=== PATIENT | female | born 1950 | race Caucasian/White ===

== ENCOUNTER 2021-06-16 13:04 | Inpatient (IN) | payer OTHER ==
[~2021-06-16] VITALS: Ht 167.6 cm; Wt 92.5 kg
[2021-06-16 13:04] VITALS: BP 162/79
[~2021-06-16 13:04] MED LIST: ACYCLOVIR 800800 MG PO; ATORVASTATIN CA40 MG PO; GEMFIBROZIL 60600 MG PO; NEURONTIN300 MG PO; PROTONIX40 M1 PO
[2021-06-16 13:26] LABS: BE(vivo) 5.2 mmol/L (-2 to +3); HCO3 28.6 mmol/L (22.0-26.0); PCO2 37.8 mmHg (35.0-45.0); PO2 74.6 mmHg (80.0-100.0); pH 7.496 (7.360-7.450)
[2021-06-16 13:32] LABS: ABSOLUTE NEUTROPHILS 7.5 thou/uL (1.4-8.2); BASOPHILS 0.3 % (0.0-2.0); HEMATOCRIT 39.1 % (37.0-47.0); HEMOGLOBIN 13.1 gm/dL (12.0-15.0); LYMPHOCYTES 6.5 % (24.0-44.0); MCH 27.3 pg (26.0-34.0); MCHC 33.4 g/dL (28.0-37.0); MCV 81.6 fL (80.0-100.0); MONOCYTES 6.6 % (1.0-8.0); PLATELET COUNT 339 thou/uL (150-400); POLYS 86.6 % (36.0-66.0); RBC 4.79 mil/uL (4.20-5.00); RDW 14.1 % (10.5-14.5); WBC 8.7 thou/uL (4.0-11.0)
[2021-06-16 13:45] LABS: CALCIUM 9.2 mg/dL (8.5-10.1); CREATININE 0.7 mg/dL (0.6-1.0); POTASSIUM 3.9 mmol/L (3.5-5.1)
[2021-06-16 14:22] LABS: URINE BILIRUBIN NEGATIVE (Negative); URINE BLOOD NEGATIVE (Negative); URINE CLARITY CLEAR; URINE COLOR YELLOW; URINE GLUCOSE-RANDOM* NEGATIVE (Negative); URINE KETONES TRACE (Negative); URINE LEUKOCYTES-REFLEX TRACE (Negative); URINE NITRITE-REFLEX NEGATIVE (Negative); URINE PROTEIN (DIPSTICK) 1+ (Negative); URINE SPECIFIC GRAVITY 1.025 (1.005-1.035); URINE UROBILINOGEN 0.2 E.U./dl (0.2-1.0)
[2021-06-16 15:13] LABS: MUCUS 4-6 Moderate strn/LPF (None Seen); SQUAMOUS 4-10 Moderate /LPF (0-3); URINE RBC 1-2 Rare /HPF (NONE SEEN); URINE WBC-REFLEX 0-5 Rare /HPF (0-5)
[2021-06-16 17:27] VITALS: BP 147/97
[2021-06-16 17:33] VITALS: BP 134/58
[2021-06-16 18:10] VITALS: BP 145/63
[2021-06-17 00:12] VITALS: BP 149/69
[2021-06-17 03:42] VITALS: BP 143/78
--- NOTE | 2021-06-17 05:47 | NUR ---
CONTINUES ON 10 LITERS N/C. KEEPING O2 SATS IN THE MID TO LOW 90'S. SHE IS RESTING QUIETLY AT THIS TIME. DENIES PAIN. ALL NEW MEDICATIONS STARTED THIS SHIFT.
--- NOTE | 2021-06-17 07:13 | EKG ---
[address] [place] [address] ELECTROCARDIOGRAM REPORT Name: TUTU GARCIA Room #: 350-P ADM IN M.R.#: [id number] Admission: 06/16/21 Attend Phys: Vidal Rivera Discharge: Date of : 46 Report #: [id number] [facility] ED Test Date: 2021-06-16 Test Time: 13:12:29 Pat Name: TUTU GARCIA Department: Room: 350 Gender: F City Director: IG : 1950 Requested By: Gurpreet Thurman Order Number: [id number] : Cyrus Aranda Measurements Intervals [place] Rate: 80 P: 14 MN: 126 QRS: -27 QRSD: 95 T: 14 QT: 356 QTc: 411 Interpretive Statements Sinus rhythm Abnormal R-wave progression, early transition Left ventricular hypertrophy No previous ECG available for comparison Electronically Signed On 06-17-2021 7:12:47 CDT by Cyrus Aranda [email or web address] <ELECTRONICALLY SIGNED> By: Cyrus Aranda MD, [facility] 06/17/21 0712 1312 1312 Cyrus Aranda MD, FACC /EPI
[2021-06-17 08:00] VITALS: BP 140/67
[2021-06-17 08:28] LABS: ABSOLUTE NEUTROPHILS 6.4 thou/uL (1.4-8.2); BASOPHILS 0.4 % (0.0-2.0); HEMATOCRIT 38.6 % (37.0-47.0); HEMOGLOBIN 12.8 gm/dL (12.0-15.0); LYMPHOCYTES 9.8 % (24.0-44.0); MCH 27.1 pg (26.0-34.0); MCV 82.1 fL (80.0-100.0); MONOCYTES 10.5 % (1.0-8.0); PLATELET COUNT 393 thou/uL (150-400); POLYS 79.3 % (36.0-66.0); RBC 4.71 mil/uL (4.20-5.00); RDW 13.9 % (10.5-14.5); WBC 8.1 thou/uL (4.0-11.0)
[2021-06-17 08:59] LABS: ALBUMIN 2.6 g/dL (3.4-5.0); CALCIUM 8.8 mg/dL (8.5-10.1); CREATININE 0.7 mg/dL (0.6-1.0); POTASSIUM 3.7 mmol/L (3.5-5.1); TOTAL BILIRUBIN 0.5 mg/dL (0.2-1.0); TOTAL PROTEIN 6.7 g/dL (6.4-8.2)
[2021-06-17 09:16] LABS: INR 1.15; PROTIME 12.5 Seconds (10.5-12.1)
--- NOTE | 2021-06-17 14:39 | NUR ---
INITIAL ASSESSMENT: ERICA reviewed chart and spoke with nursing and attending physician. Pt was admitted from home due to hypoxia. Pt had positive COVID test in the ER. Pt placed in Enhanced Isolation. Pt has not received a COVID vaccine. Pt is afebrile and requiring 10L of O2. Pt is on IV abx and IV steroids. Remdesivir has been started. ERICA spoke with pt via phone. Introduced role of SW. Pt is alert/orientated x 4. Pt reports she lives at home alone. Prior to admission, pt was independent with ADLs. No use of DME. No hx of services or post-acute placement. Pt's PCP is Dr. Janneth Nicholas at [facility]. Pt states she is interested in establishing care with Dr. Moncada. Pt asked to verify her insurance to find out if she has a copay. Pt states she has a [facility] Medicare Advantage plan. ERICA confirmed pt's SS# and . Notified UR RN and MAR tech. ERICA asked pt's nurse to make copy of insurance card. Pt states she has her insurance card in her room. ERICA is following to assist as needed with discharge planning.
[2021-06-17 15:33] VITALS: BP 119/61
--- NOTE | 2021-06-17 17:31 | NUR ---
PT REMAINS ON OXYGEN VIA NC. PT ABLE TO TAKE IN GOOD PO. CONTINUE CURRENT PLAN OF CARE.
[2021-06-17 19:05] VITALS: BP 129/66
--- NOTE | 2021-06-18 04:27 | NUR ---
pulse ox drops to the 70's when she has her oxygen off for nose blowing. encouraged her to spit the sputum into the sputum cup. she mostly swallows the sputum. encouraged her to expectorate. she is sitting up in the bed very awake and refreshed after resting from ambien last night.
[2021-06-18 05:02] VITALS: BP 144/55
[2021-06-18 06:47] LABS: HEMATOCRIT 37.2 % (37.0-47.0); HEMOGLOBIN 12.7 gm/dL (12.0-15.0); MCH 27.9 pg (26.0-34.0); MCHC 34.1 g/dL (28.0-37.0); MCV 81.9 fL (80.0-100.0); PLATELET COUNT 456 thou/uL (150-400); RBC 4.54 mil/uL (4.20-5.00); RDW 13.9 % (10.5-14.5); WBC 10.4 thou/uL (4.0-11.0)
[2021-06-18 07:10] LABS: ALBUMIN 2.5 g/dL (3.4-5.0); CALCIUM 8.7 mg/dL (8.5-10.1); CREATININE 0.8 mg/dL (0.6-1.0); DIRECT BILIRUBIN 0.1 mg/dL (<0.1-0.2); PHOSPHORUS 3.4 mg/dL (2.5-4.9); POTASSIUM 3.8 mmol/L (3.5-5.1); TOTAL BILIRUBIN 0.4 mg/dL (0.2-1.0); TOTAL PROTEIN 6.4 g/dL (6.4-8.2)
[2021-06-18 07:20] VITALS: BP 138/73
[2021-06-18 13:08] LABS: HIV ANTIBODY Non Reactive (Non Reactive)
[2021-06-18 13:34] LABS: ABSOLUTE NEUTROPHILS 8.2 thou/uL (1.4-8.2); ATYPICAL LYMPHS 1 %
--- NOTE | 2021-06-18 14:19 | NUR ---
ERICA reviewed chart and spoke with nursing and attending physician. Pt remains in Enhanced Isolation due to COVID. Pt is afebrile and on 10L of O2. Pt is on IV abx, IV steroids and IV lasix. Pt is on Remdesivir. Notified by MAR LAUREN of pt's insurance and copay. Pt's insurance verified and confirmed pt has a [facility] Medicare Advantage plan. Pt has a $295/day for days 1-5. No copay after day 5. ERICA spoke with pt via phone to provide update and notify of copay. Pt with multiple other questions regarding insurance coverage. ERICA encouraged pt to call customer service to have the insurance company quote her benefits. Pt has her insurance card in her room. Pt verbalized understanding. ERICA to provide pt with [facility] business office phone number to follow up after discharge if needed. ERICA is following to assist as needed with discharge plannning.
[2021-06-18 16:00] VITALS: BP 141/80
--- NOTE | 2021-06-18 17:48 | NUR ---
ASSUMED PATIENT CARE AT 0700. A/O X4. ANXIOUS. ON 10L/NC. VSS. WILL KEEP MONITOR.
[2021-06-18 19:39] VITALS: BP 139/66
[2021-06-19 04:21] VITALS: BP 133/67
--- NOTE | 2021-06-19 06:22 | NUR ---
PROGRESS PT A/O X4 . UP WITH SBA TO BSC, GETS FATIGUED WITH ACTIVITY. ON 10 LITERS O2 LUNGS DIMINISHED HAS A FREQUENT DRY COUGH. NAVARRO INTACT DRAINING A LARGE AMOUNT OF URINE. REPORTS PAIN TO ABDOMEN WITH COUGH BUT STATES DOES NOT NEED ANY PAIN MEDICATIONS IT IS BETTER THAN BEFORE SHE CAME IN. REMDESIVIR GIVEN ORDERED. PT EATING SNACKS THROUGHOUT NIGHT. TELEMETRY INTACT READING SR WITH RATES IN THE 60'S TO 70'S.
[2021-06-19 07:34] VITALS: BP 130/57
[2021-06-19 08:35] LABS: ABSOLUTE NEUTROPHILS 6.9 thou/uL (1.4-8.2); BASOPHILS 0.1 % (0.0-2.0); EOSINOPHILS 0.6 % (0.0-3.0); HEMATOCRIT 37.9 % (37.0-47.0); HEMOGLOBIN 12.5 gm/dL (12.0-15.0); LYMPHOCYTES 13.2 % (24.0-44.0); MCH 26.9 pg (26.0-34.0); MCV 81.6 fL (80.0-100.0); PLATELET COUNT 461 thou/uL (150-400); POLYS 74.1 % (36.0-66.0); RBC 4.65 mil/uL (4.20-5.00); RDW 13.9 % (10.5-14.5); WBC 9.3 thou/uL (4.0-11.0)
[2021-06-19 08:59] LABS: ALBUMIN 2.5 g/dL (3.4-5.0); CALCIUM 8.7 mg/dL (8.5-10.1); CREATININE 0.7 mg/dL (0.6-1.0); DIRECT BILIRUBIN 0.1 mg/dL (<0.1-0.2); PHOSPHORUS 3.8 mg/dL (2.5-4.9); POTASSIUM 3.5 mmol/L (3.5-5.1); TOTAL BILIRUBIN 0.5 mg/dL (0.2-1.0); TOTAL PROTEIN 6.2 g/dL (6.4-8.2)
--- NOTE | 2021-06-19 12:14 | NUR ---
SW reviewed chart and spoke with nursing and attending physician. Pt remains in Enhanced Isolation due to COVID. Pt is afebrile and requiring 10L of O2. Pt is on IV abx, IV lasix and IV steroids. Pt is on Remdesivir. No weekend discharge planned. Therapy evals will need to be ordered to assist with discharge needs. ERICA is following to assist as needed with discharge planning.
[2021-06-19 15:01] VITALS: BP 132/80
--- NOTE | 2021-06-19 17:50 | NUR ---
ASSUMED PATIENT CARE AT 0700. A/O X4. ON 10L/NC. SLOWLY TOWARDS POC GOALS.
[2021-06-19 19:43] VITALS: BP 134/70
[2021-06-20 04:38] VITALS: BP 126/75
[2021-06-20 04:38] LABS: BASOPHILS 0.3 % (0.0-2.0); EOSINOPHILS 0.5 % (0.0-3.0); HEMATOCRIT 38.5 % (37.0-47.0); LYMPHOCYTES 12.7 % (24.0-44.0); MCH 27.5 pg (26.0-34.0); MCHC 33.8 g/dL (28.0-37.0); MCV 81.4 fL (80.0-100.0); MONOCYTES 10.5 % (1.0-8.0); PLATELET COUNT 498 thou/uL (150-400); RBC 4.73 mil/uL (4.20-5.00); RDW 14.1 % (10.5-14.5); WBC 10.5 thou/uL (4.0-11.0)
[2021-06-20 04:49] LABS: ALBUMIN 2.7 g/dL (3.4-5.0); ANION GAP 11 mmol/L (7-16); BUN 23 mg/dL (7-18); CALCIUM 8.7 mg/dL (8.5-10.1); CHLORIDE 100 mmol/L (98-107); CO2 28 mmol/L (21-32); CREATININE 0.7 mg/dL (0.6-1.0); DIRECT BILIRUBIN < 0.1 mg/dL (<0.1-0.2); GLUCOSE 117 mg/dL (74-106); PHOSPHORUS 3.7 mg/dL (2.5-4.9); POTASSIUM 3.6 mmol/L (3.5-5.1); SGOT 71 U/L (15-37); SGPT 91 U/L (30-65); SODIUM 139 mmol/L (136-145); TOTAL BILIRUBIN 0.6 mg/dL (0.2-1.0); TOTAL PROTEIN 6.5 g/dL (6.4-8.2)
[2021-06-20 07:02] VITALS: BP 123/63
--- NOTE | 2021-06-20 07:47 | NUR ---
PT ALERT & ORIENTED X 4. PT ON 10L 02 NC. PT ON 1500ML FLUID RESTRICTION. VITAL SIGNS STABLE OVERNIGHT. WILL CONTINUE TO MONITOR.
[2021-06-20 15:31] VITALS: BP 125/58
--- NOTE | 2021-06-20 19:47 | NUR ---
RN assumed pt's care at 0700-1900pm, PT IS A&OX4, PT IS ON O2 10L/MIN/NC, PT'S O2SAT STAY AT 92-96%, PT'S VS ARE STABLE AT DAY SHIFT.
[2021-06-20 20:38] VITALS: BP 151/86
[2021-06-21 03:21] VITALS: BP 132/75
[2021-06-21 04:11] LABS: ABSOLUTE NEUTROPHILS 8.3 thou/uL (1.4-8.2); BASOPHILS 0.1 % (0.0-2.0); EOSINOPHILS 0.4 % (0.0-3.0); HEMATOCRIT 37.5 % (37.0-47.0); LYMPHOCYTES 10.5 % (24.0-44.0); MCHC 34.5 g/dL (28.0-37.0); MCV 81.1 fL (80.0-100.0); MONOCYTES 9.1 % (1.0-8.0); PLATELET COUNT 519 thou/uL (150-400); POLYS 79.9 % (36.0-66.0); RBC 4.63 mil/uL (4.20-5.00); RDW 13.7 % (10.5-14.5); WBC 10.4 thou/uL (4.0-11.0)
[2021-06-21 04:29] LABS: ALBUMIN 2.6 g/dL (3.4-5.0); CALCIUM 8.5 mg/dL (8.5-10.1); CREATININE 0.7 mg/dL (0.6-1.0); DIRECT BILIRUBIN 0.1 mg/dL (<0.1-0.2); PHOSPHORUS 3.2 mg/dL (2.5-4.9); POTASSIUM 3.4 mmol/L (3.5-5.1); TOTAL BILIRUBIN 0.5 mg/dL (0.2-1.0); TOTAL PROTEIN 6.2 g/dL (6.4-8.2)
--- NOTE | 2021-06-21 05:10 | NUR ---
PT ALERT AND ORIENTED X4. VSS AFEBRILE. NO C/O PAIN TONIGHT. NO C/O SOA ON 10L HFNC. PT ENCOURAGED REGARDING FLUID RESTRICTION. 420 IN TONIGHT. SATS WNL TONIGHT.
[2021-06-21 08:27] VITALS: BP 138/78
[2021-06-21 17:09] VITALS: BP 149/63
--- NOTE | 2021-06-21 18:48 | NUR ---
RN ASSUMED PT'S CARE AT 0700AM, PT IS A&OX4, PT IS ON O2 10L/MIN/NC, PT'S O2SAT STAY AT 94-96%, PT IS CONTIUNING IV ABX AND TREAT COVID MEDICATIONS, PT GETS UP TO CHAIR WITH ASSIST, PT DENIES PAIN AND SOB AT DAY SHIFT.
[2021-06-21 20:30] VITALS: BP 129/67
--- NOTE | 2021-06-21 22:53 | NUR ---
PT PROGRESSING TOWARDS D/C GOALS. O2 DECREASED TO 9LHFNC PER RT. PT TOLERATING WELL. C/O DRY NOSE. REPLACED HUMIDIFIED AIR BUBBLER PER RT. PT NOT COMPLAINING NOW. SHE SAT UP IN CHAIR FOR BATH AND UP TO BSC AND HAD A BM. VSS AFEBRILE. KARLOS CONTINUE TO MONITOR PT FOR CHANGES.
[2021-06-22 03:16] LABS: ABSOLUTE NEUTROPHILS 9.3 thou/uL (1.4-8.2); BASOPHILS 0.1 % (0.0-2.0); EOSINOPHILS 0.1 % (0.0-3.0); HEMATOCRIT 39.3 % (37.0-47.0); HEMOGLOBIN 13.2 gm/dL (12.0-15.0); LYMPHOCYTES 9.1 % (24.0-44.0); MCH 27.4 pg (26.0-34.0); MCHC 33.5 g/dL (28.0-37.0); MCV 81.7 fL (80.0-100.0); PLATELET COUNT 527 thou/uL (150-400); POLYS 79.7 % (36.0-66.0); RBC 4.81 mil/uL (4.20-5.00); RDW 13.8 % (10.5-14.5); WBC 11.7 thou/uL (4.0-11.0)
[2021-06-22 03:33] LABS: ALBUMIN 2.8 g/dL (3.4-5.0); CALCIUM 8.8 mg/dL (8.5-10.1); CREATININE 0.8 mg/dL (0.6-1.0); DIRECT BILIRUBIN 0.1 mg/dL (<0.1-0.2); PHOSPHORUS 3.5 mg/dL (2.5-4.9); POTASSIUM 3.5 mmol/L (3.5-5.1); TOTAL BILIRUBIN 0.5 mg/dL (0.2-1.0); TOTAL PROTEIN 6.5 g/dL (6.4-8.2)
[2021-06-22 04:22] VITALS: BP 132/69
--- NOTE | 2021-06-22 07:14 | NUR ---
PT PROGRESSING TOWARDS D/C GOALS/ VSS . AFEBRILE. SATS WNL ON 7LNC. NO S/S DISRESS. NO C/O PAIN. PT COPLIANT WITH FLUID RESTRICTION.
[2021-06-22 08:02] VITALS: BP 130/71
--- NOTE | 2021-06-22 14:00 | NUR ---
PT IS PROGRESSING TOWARDS CARE, CURRENTLY ON 7L OXYGEN. SOB WITH EXERTION. DENIES ANY CHEST PAIN, NAUSEA AND VOMITTING. UP TO BSC WITH ASSIST. NAVARRO CONTINUE TO BE IN PLACE, PATENT AND SECURED. FALL AND ENHANCED PRECAUTIONS IN PLACE. DENIES ANY NEEDS AT MOMENT, EILL CONTIONUE TO MONITOR.
--- NOTE | 2021-06-22 14:59 | NUR ---
ERICA reviewed chart and spoke with nursing and attending physician. Pt remains in Enhanced Isolation due to COVID. Pt is afebrile and on 7L of O2. Pt is on IV abx, IV steroids and IV lasix. Remdesivir has been reordered. Goal is to get pt's O2 down to around 2L for discharge. SW requested therapy evals. Attending physician states that pt is getting up in her room independently. ERICA placed call to pt's room to provide update and discuss discharge plan. Spoke with pt via phone. SW discussed need for possible home O2 and HH. Pt verbalized understanding. Pt is agreeable [facility] home O2 referral, but is hoping she will not need home O2 and/or HH. Pt is agreeable [facility] home O2 referral at this time. Options provided. No preference voiced. ERICA faxed home O2 referral to [facility] for review. ERICA is following to assist as needed with discharge planning.
[2021-06-22 15:14] VITALS: BP 118/67
[2021-06-22 19:50] VITALS: BP 147/76
[2021-06-23 04:38] VITALS: BP 115/66
--- NOTE | 2021-06-23 05:06 | NUR ---
Patient making progress towards outcome goals. Oxygen down to 5L/Hi dannielle cannula sats misd to upper 90's. Vitals signs and rhythm stable. Denies pain. Maintaking 1500 cc fluid restrictions.
[2021-06-23 05:54] LABS: ALBUMIN 3.2 g/dL (3.4-5.0); CALCIUM 9.2 mg/dL (8.5-10.1); CREATININE 0.8 mg/dL (0.6-1.0); DIRECT BILIRUBIN 0.1 mg/dL (<0.1-0.2); PHOSPHORUS 4.1 mg/dL (2.5-4.9); POTASSIUM 3.4 mmol/L (3.5-5.1); TOTAL BILIRUBIN 0.5 mg/dL (0.2-1.0); TOTAL PROTEIN 7.1 g/dL (6.4-8.2)
[2021-06-23 07:04] VITALS: BP 127/58
--- NOTE | 2021-06-23 09:15 | NUR ---
Nutrition: pt admitted with COVID, hypoxia. Assessed due to LOS. Spoke with pt over phone. Reports appetite as good, intake variable from 20-70% of meals per documentation. Pt orders meals and reports tends to eat throughout the day rather than 3 large meals. Weight down 10# suspect mostly related to fluid, need for lasix and in negative fluid balance. Is DNI. Pt voices no meal concerns. Will follow nutriitonal parameters but consider low risk at present
[2021-06-23 11:03] LABS: T-SPOT.TB Negative
[2021-06-23 11:10] VITALS: BP 123/70
--- NOTE | 2021-06-23 14:10 | NUR ---
ERICA reviewed chart and spoke with nursing and attending physician. Pt remains in Enhanced Isolation due to COVID. Pt is afebrile and on 3L of O2. Pt is on IV steroids, IV lasix and Remdesivir. Pt is progressing towards goals for discharge. Per attending, pt will be ready to discharge home tomorrow. Will need a rest/exercise oximetry ordered to determine home O2 needs. ERICA updated [facility] liaison. ERICA is following to assist as needed with discharge planning.
[2021-06-23 15:23] VITALS: BP 115/66
--- NOTE | 2021-06-23 17:50 | NUR ---
70, F , AOX4, OXYGEN DECREASE TO 3LNC PT TOLERATING IT WELL, LASIX GIVEN GOOD URINE OUTPUT POST LASIX. PT EATING 25-60 % OF MEAL PT IS A SLOW EATER. PT DECLINE AMBULATING IN THE ROOM.
[2021-06-23 19:15] VITALS: BP 129/74
[2021-06-24 03:55] VITALS: BP 150/75
[2021-06-24 07:12] VITALS: BP 136/74
--- NOTE | 2021-06-24 07:36 | NUR ---
PT IS PROGRESSING TOWARD GOAL OF DISCHARGE. SHE HAS REMAINED ON 3L OF O2 PER NC AND HAS BEEN 94-96% THROUGHOUT THE SHIFT. PT UP TO BEDSIDE COMMODE WITH STANDBY ASSIST, GAIT STEADY. CONTINUES TO HAVE A NONPRODUCTIVE COUGH. NAVARRO IN PLACE, DRAINING INDY URINE. BM THIS SHIFT WELL.
[2021-06-24 07:43] LABS: ALBUMIN 2.1 g/dL (3.4-5.0); CALCIUM 9.3 mg/dL (8.5-10.1); CREATININE 0.8 mg/dL (0.6-1.0); DIRECT BILIRUBIN 0.1 mg/dL (<0.1-0.2); PHOSPHORUS 4.2 mg/dL (2.6-4.7); POTASSIUM 3.5 mmol/L (3.5-5.1); TOTAL BILIRUBIN 0.6 mg/dL (0.2-1.0); TOTAL PROTEIN 6.6 g/dL (6.4-8.2)
[2021-06-24] MEDS ORDERED: DECADRON6 MG PO (09:56)
[2021-06-24] MEDS ORDERED: ASPIRIN EC325 M1 PO (09:56)
--- NOTE | 2021-06-24 12:07 | NUR ---
ERICA reviewed chart and spoke with nursing and attending physician. Pt remains in Enhanced Isolation due to COVID. Pt is afebrile and on 2L of O2. Pt is on IV lasix, IV steroids and Remdesivir. Rest/exercise oximetry completed earlier today. Pt does qualify for home O2. ERICA faxed testing and script to [facility]. Notified [facility] liaison. ERICA notified by nursing that pt will discharge home tomorrow. ERICA spoke with pt via phone to discuss discharge plan. Pt states that she is waiting to talk with her niece, who lives in [place], to discuss discharge. 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 Pt states that things need to be moved around and she does not feel that she will be able to find someone to do this for her. ERICA discussed providing pt with [facility] for in-home care and additional community resources. Pt declined offer. ERICA offered to arrange services to evaluate pt at home and assist with referrals. Pt declined. Pt states she needs to talk with her niece and then she will follow up with ERICA. Provided pt with ERICA contact info. ERICA is following to assist as needed with discharge planning.
[2021-06-24 15:06] VITALS: BP 128/70
--- NOTE | 2021-06-24 15:35 | NUR ---
CARE ASSUMED THIS AM, PT ALERT AND ORIENTED X4. FORGETFUL AT TIMES. CURRENTLY ON 2L OXYGEN. PT WILL NEED 2L OF OXYGEN WITH ACTIVITY. NAVARRO D/C. UP TO BSC INDEPENDTLY. CONTINUE TO BE IN ENHANCED ISOLATION. DENIES ANY PAIN. WILL CONTINUE TO MONITOR
[2021-06-24 19:50] VITALS: BP 141/67
[2021-06-24 22:15] VITALS: BP 135/69
--- NOTE | 2021-06-24 23:04 | NUR ---
PT C/O CHEST TIGHTNESS NEAR THROAT. PT STATED SHE THOUGHT COULD BE FROM COUGHING. TYLENOL GIVEN, AMBIEN GIVE, COUGH MEDICINE GIVEN. HOOKER INSPECTOR NOTIFIED. EKG DONE AND RESULTS CALLED TO HOOKER INSPECTOR. PT DENIED CARDIAC CHEST PAIN. SHE STATED IT WENT AWAY RIGHT AWAY AND THOUGHT IT WAS DUE TO SHE JUST NEEDED TO HAVE A BM. PT HAD A LG FORMED BM SHE IS RESTING QUIETLY PRESENTLTY . NO C/O PAIN OR CHEST TIGHTNESS. NO SOA. WILL CONTINUE TO MONITOR PT FOR CHANGES.
[2021-06-25 04:07] VITALS: BP 145/82
--- NOTE | 2021-06-25 04:45 | NUR ---
PT IN AWAKE EARLY THIS AM EATING BROCCOLLI. VSS AFEBRILE. SATS WNL ON 2LNC. PT ANXIOUS TO BE GOING HOME SOON. PROGRESSING WELL TOWARDS D/C GOALS.
[2021-06-25 06:10] LABS: ALBUMIN 3.3 g/dL (3.4-5.0); CALCIUM 9.1 mg/dL (8.5-10.1); CREATININE 0.9 mg/dL (0.6-1.0); DIRECT BILIRUBIN 0.2 mg/dL (<0.1-0.2); POTASSIUM 3.1 mmol/L (3.5-5.1); TOTAL BILIRUBIN 0.7 mg/dL (0.2-1.0); TOTAL PROTEIN 6.5 g/dL (6.4-8.2)
[2021-06-25 08:22] VITALS: BP 137/72
--- NOTE | 2021-06-25 08:56 | EKG ---
[address] [place] [address] ELECTROCARDIOGRAM REPORT Name: TUTU GARCIA Room #: 350-P ADM IN M.R.#: [id number] Admission: 06/16/21 Attend Phys: Vidal Rivera Discharge: Date of : 46 Report #: [id number] [facility] Test Date: 2021-06-24 Test Time: 22:53:33 Pat Name: TUTU GARCIA Department: Room: 350 P Gender: F Digital Content Specialist: [id number] : 1950 Requested By: Opal Kwon Order Number: [id number] MD: Pedro Valente Measurements Intervals [place] Rate: 76 P: 6 NE: 130 QRS: -39 QRSD: 95 T: 20 QT: 380 QTc: 428 Interpretive Statements Sinus rhythm Abnormal R-wave progression, late transition Leftward axis Compared to ECG 06/16/2021 13:12:29 Poor R wave progression is now present Electronically Signed On 06-25-2021 8:56:10 CDT by Pedro Valente [email or web address] <ELECTRONICALLY SIGNED> By: Pedro Valente MD, [facility] 06/25/21 0856 [id number] 52 Pedro Valente MD, [facility] /EPI
[2021-06-25 12:00] VITALS: BP 138/73
[2021-06-25 13:20] VITALS: BP 138/73
[2021-06-25] MEDS ORDERED: DEXAMETHASONE6 MG PO (13:32)
[2021-06-25] MEDS ORDERED: ASPIRIN EC325 MG PO (13:32)
--- NOTE | 2021-06-25 14:38 | NUR ---
DISCHARGE NOTE: ERICA reviewed chart and spoke with nursing and attending physician. Pt remains in Enhanced Isolation due to COVID. Pt is medically stable for discharge home today with home O2. ERICA placed call to pt's room. No answer. ERICA spoke with pt's niece, Kenia, via phone to discuss discharge plan. Kenia states that she discussed discharge with pt. Pt is aware that she will have transportation home and that she will need to call [facility] to coordinated the delivery of her home O2 equipment. Portable O2 provided by [facility]. ERICA arranged w/c van transportation home through [employer] for [id number]. ERICA notified Director of Case mgmt of transportation arrangements. ERICA faxed face sheet to [facility] and spoke with Graciela. Pt's meds will be ready prior to 1600. Contact info for [facility] placed in pt's discharge summary. Info regarding provider groups at [facility] also placed in d/c summary. ERICA updated pt's nurse, who notified pt. No additional ERICA needs identified at this time. ERICA is available to assist should needs arise.
[2021-06-25 15:56] VITALS: BP 138/73
--- NOTE | 2021-06-25 17:24 | NUR ---
DISCHARGE NOTE: NEW MEDS GIVEN TO PT. PT EDUCATED ON HOW TO USE HOME OXYGEN AND IS AWARE TO CALL [facility] WHEN SHE GETS HOME FOR THEM TO DELIVER HER OXYGEN. EDUCATED ON DISCHARGE INSTRUCTIONS. IV AND TELE D/C. ALL BELONGINGS PACKED AND WITH PT. TRANSPORTATION HERE TO PT
== END 2021-06-25 16:31 | disposition home or self-care (01) | DRG 177 ==
LOC: ER 13:04 → EROBS 15:07 → 3W 15:07
PROVIDERS: Specialist; Student in an Organized Health Care Education/Training Program; ADMIT Hospitalist; ATTEND Hospitalist
PROC: XW033E5 Introduction of Remdesivir Anti-infective into Peripheral Vein, Percutaneous Approach, New Technology Group 5 (ICD-10-PCS; principal; 2021-06-16)
PROC: XW033H5 Introduction of Tocilizumab into Peripheral Vein, Percutaneous Approach, New Technology Group 5 (ICD-10-PCS; principal; 2021-06-16)
PROC: 5A0935A Assistance with Respiratory Ventilation, Less than 24 Consecutive Hours, High Flow/Velocity Cannula (ICD-10-PCS; principal; 2021-06-16)
PROC: 5A0935A Assistance with Respiratory Ventilation, Less than 24 Consecutive Hours, High Flow/Velocity Cannula (ICD-10-PCS; 2021-06-17)
PROC: 5A0935A Assistance with Respiratory Ventilation, Less than 24 Consecutive Hours, High Flow/Velocity Cannula (ICD-10-PCS; 2021-06-19)
PROC: 5A0935A Assistance with Respiratory Ventilation, Less than 24 Consecutive Hours, High Flow/Velocity Cannula (ICD-10-PCS; 2021-06-20)
PROC: 5A0935A Assistance with Respiratory Ventilation, Less than 24 Consecutive Hours, High Flow/Velocity Cannula (ICD-10-PCS; 2021-06-21)
PROC: 5A0935A Assistance with Respiratory Ventilation, Less than 24 Consecutive Hours, High Flow/Velocity Cannula (ICD-10-PCS; 2021-06-22)
DX: U07.1 COVID-19 (principal); J12.82 Pneumonia due to coronavirus disease 2019; J96.91 Respiratory failure, unspecified with hypoxia; E78.00 Pure hypercholesterolemia, unspecified; K21.9 Gastro-esophageal reflux disease without esophagitis; E78.5 Hyperlipidemia, unspecified; Z66 Do not resuscitate; Z80.0 Family history of malignant neoplasm of digestive organs; Z23 Encounter for immunization; Z88.6 Allergy status to analgesic agent
CPT/HCPCS: 10879